=== PATIENT | female | born 1980 | race Caucasian/White ===

== ENCOUNTER 2017-08-05 21:42 | Emergency (ER) | payer BC ==
[2017-08-05 21:48] VITALS: RESP 18
[2017-08-05] MEDS ORDERED: ONDANSETRON 4 MG/2 ML VIAL IVP STA (22:39)
[2017-08-05] MEDS ORDERED: SODIUM CHLORIDE 0.9% 1,000 ML IV ONE (22:39)
[2017-08-05] MEDS ORDERED: SODIUM CHLORIDE 0.9% 500 ML IV ONE (22:39)
[2017-08-05] MEDS ORDERED: DICYCLOMINE 10 MG/ML 2 ML AMP IM STA (22:39)
--- NOTE | 2017-08-05 22:49 | ED ---
Nausea/Vomiting/Diarrhea HPI - General Chief complaint: Nausea/Vomiting/Diarrhea Stated complaint: vomiting/diarrhea Time Seen by Provider: 08/05/17 22:09 Source: patient Mode of arrival: ambulatory Limitations: no limitations - History of Present Illness Initial comments: 36-year-old female patient presents to the emergency department today for evaluation of vomiting and diarrhea. Patient states the symptoms started approximately 2 hours ago. States she's had multiple episodes of both. Patient states she is also having some generalized abdominal cramping and pain. Patient states that she is hot and cold flashes with this. She denies any known fevers. Denies any recent travel or sick contacts. She denies any ingestion of questionable foods. Patient denies any chance of . Patient denies any recent rash, shortness breath, chest pain, constipation, hematochezia, melena, hematemesis, back pain, numbness, tingling, dizziness, weakness, hematuria, dysuria, urinary urgency, urinary frequency, headache, visual changes, or any other complaints. - Related Data Home Medications Medication Instructions Recorded Confirmed Dextroamphetamine/Amphetamine 20 mg PO TID PRN 07/31/14 08/05/17 [Adderall] Previous Rx's Medication Instructions Recorded Ondansetron [Zofran ODT] 4 mg PO Q8HR PRN #10 tab 08/06/17 Allergies Allergy/AdvReac Type Severity Reaction Status Date / Time No Known Allergies Allergy Verified 08/05/17 22:30 Review of Systems ROS Statement: Those systems with pertinent positive or pertinent negative responses have been documented in the HPI. ROS Other: All systems not noted in ROS Statement are negative. Past Medical History Past Medical History: GERD/Reflux Additional Past Medical History / Comment(s): hx. migraines History of Any Multi-Drug Resistant Organisms: None Reported Past Surgical History: Adenoidectomy, Tonsillectomy Additional Past Surgical History / Comment(s): D & C Additional Past Anesthesia/Blood Transfusion Reaction / Comment(s): thinks BP was low from anes. Past Psychological History: ADD/ADHD, Anxiety Smoking Status: Current every day smoker Past Alcohol Use History: Occasional Past Drug Use History: None Reported - Past Family History Mother Family Medical History: No Reported History General Exam Limitations: no limitations General appearance: alert, in no apparent distress, other (Physical well- developed, well-nourished adult female patient in no acute distress. Vital signs upon presentation are temperature 98.5F, pulse 129, respirations 18, blood pressure 126/72, pulse ox 98% on room air.) Eye exam: Present: normal appearance, PERRL, EOMI. Absent: scleral icterus, conjunctival injection, periorbital swelling ENT exam: Present: normal exam, normal oropharynx, mucous membranes moist Respiratory exam: Present: normal lung sounds bilaterally. Absent: respiratory distress, wheezes, rales, rhonchi, stridor Cardiovascular Exam: Present: normal rhythm, tachycardia, normal heart sounds. Absent: systolic murmur, diastolic murmur, rubs, gallop, clicks GI/Abdominal exam: Present: soft, tenderness (Generalized abdominal tenderness) , normal bowel sounds. Absent: distended, guarding, rebound, rigid Neurological exam: Present: alert, oriented X3, CN II-XII intact Psychiatric exam: Present: normal affect, normal mood Skin exam: Present: warm, dry, intact, normal color. Absent: rash Course Vital Signs 08/05/17 08/05/17 08/06/17 21:46 23:00 00:14 Temperature 98.5 F 99.1 F 98.7 F Pulse Rate 129 H 87 81 Respiratory 18 18 18 Rate Blood Pressure 126/72 123/61 124/70 O2 Sat by Pulse 98 99 96 Oximetry Medical Decision Making - Medical Decision Making 36-year-old female patient presented to the emergency department today for evaluation of vomiting and diarrhea. She did also reports some generalized abdominal cramping. Physical examination was unremarkable. Labs reviewed and did show mildly elevated white blood cell count felt to be reactive from vomiting. Other labs are unremarkable. Urinalysis was negative. Patient did receive IV fluids, Zofran, and Bentyl here in the emergency Department. Patient is feeling much better upon reevaluation. We did discuss possibility of a gastroenteritis as a cause for her symptoms. We did discuss management of this at home. She is instructed to follow-up with her primary care physician for recheck in 1-2 days. Return parameters discussed in detail. She verbalizes understanding and agrees with this plan. - Lab Data Result diagrams: 08/05/17 23:00 08/05/17 23:00 Lab Results 08/05/17 08/05/17 08/05/17 Range/Units 23:00 23:00 23:00 WBC 11.8 H (3.8-10.6) k/uL RBC 4.57 (3.80-5.40) m/uL Hgb 13.7 (11.4-16.0) gm/dL Hct 41.2 (34.0-46.0) % MCV 90.1 (80.0-100.0) fL MCH 30.1 (25.0-35.0) pg MCHC 33.4 (31.0-37.0) g/dL RDW 12.9 (11.5-15.5) % Plt Count 172 (150-450) k/uL Neutrophils % 91 % Lymphocytes % 4 % Monocytes % 4 % Eosinophils % 1 % Basophils % 0 % Neutrophils # 10.7 H (1.3-7.7) k/uL Lymphocytes # 0.4 L (1.0-4.8) k/uL Monocytes # 0.5 (0-1.0) k/uL Eosinophils # 0.1 (0-0.7) k/uL Basophils # 0.0 (0-0.2) k/uL Sodium 140 (137-145) mmol/L Potassium 3.8 (3.5-5.1) mmol/L Chloride 104 (98-107) mmol/L Carbon Dioxide 23 (22-30) mmol/L Anion Gap 13 mmol/L BUN 15 (7-17) mg/dL Creatinine 0.61 (0.52-1.04) mg/dL Est GFR (CKD-EPI)AfAm >90 (>60 ml/min/1.73 sqM) Est GFR (CKD-EPI)NonAf >90 (>60 ml/min/1.73 sqM) Glucose 112 H (74-99) mg/dL Calcium 9.6 (8.4-10.2) mg/dL Total Bilirubin 0.9 (0.2-1.3) mg/dL AST 21 (14-36) U/L ALT 23 (9-52) U/L Alkaline Phosphatase 78 (38-126) U/L Total Protein 7.5 (6.3-8.2) g/dL Albumin 4.4 (3.5-5.0) g/dL Amylase 35 (30-110) U/L Lipase 35 (23-300) U/L Urine Color Urine Appearance (Clear) Urine pH (5.0-8.0) Ur Specific [place] (1.001-1.035) Urine Protein (Negative) Urine Glucose (UA) (Negative) Urine Ketones (Negative) Urine Blood (Negative) Urine Nitrite (Negative) Urine Bilirubin (Negative) Urine Urobilinogen (<2.0) mg/dL Ur Leukocyte Esterase (Negative) Urine RBC (0-5) /hpf Urine WBC (0-5) /hpf Ur Squamous Epith Cells (0-4) /hpf Urine Bacteria (None) /hpf Urine Mucus (None) /hpf Urine HCG, Qual Not Detected (Not Detectd) 08/05/17 Range/Units 23:00 WBC (3.8-10.6) k/uL RBC (3.80-5.40) m/uL Hgb (11.4-16.0) gm/dL Hct (34.0-46.0) % MCV (80.0-100.0) fL MCH (25.0-35.0) pg MCHC (31.0-37.0) g/dL RDW (11.5-15.5) % Plt Count (150-450) k/uL Neutrophils % % Lymphocytes % % Monocytes % % Eosinophils % % Basophils % % Neutrophils # (1.3-7.7) k/uL Lymphocytes # (1.0-4.8) k/uL Monocytes # (0-1.0) k/uL Eosinophils # (0-0.7) k/uL Basophils # (0-0.2) k/uL Sodium (137-145) mmol/L Potassium (3.5-5.1) mmol/L Chloride (98-107) mmol/L Carbon Dioxide (22-30) mmol/L Anion Gap mmol/L BUN (7-17) mg/dL Creatinine (0.52-1.04) mg/dL Est GFR (CKD-EPI)AfAm (>60 ml/min/1.73 sqM) Est GFR (CKD-EPI)NonAf (>60 ml/min/1.73 sqM) Glucose (74-99) mg/dL Calcium (8.4-10.2) mg/dL Total Bilirubin (0.2-1.3) mg/dL AST (14-36) U/L ALT (9-52) U/L Alkaline Phosphatase (38-126) U/L Total Protein (6.3-8.2) g/dL Albumin (3.5-5.0) g/dL Amylase (30-110) U/L Lipase (23-300) U/L Urine Color Yellow Urine Appearance Cloudy H (Clear) Urine pH 5.5 (5.0-8.0) Ur Specific [place] 1.019 (1.001-1.035) Urine Protein Trace H (Negative) Urine Glucose (UA) Negative (Negative) Urine Ketones Negative (Negative) Urine Blood Small H (Negative) Urine Nitrite Negative (Negative) Urine Bilirubin Negative (Negative) Urine Urobilinogen <2.0 (<2.0) mg/dL Ur Leukocyte Esterase Trace H (Negative) Urine RBC 4 (0-5) /hpf Urine WBC 7 H (0-5) /hpf Ur Squamous Epith Cells 14 H (0-4) /hpf Urine Bacteria Many H (None) /hpf Urine Mucus Many H (None) /hpf Urine HCG, Qual (Not Detectd) - Radiology Data Radiology results: report reviewed, image reviewed Two-view x-ray of the abdomen shows no sign of intestinal obstruction or pneumoperitoneum. Fecal pattern is normal. There are numerous phleboliths in the pelvis. There are no pathologic calcifications over the kidneys. Impression by Dr. Kaufman shows nonacute abdomen. No change. Disposition Clinical Impression: Gastroenteritis Disposition: HOME SELF-CARE Condition: Good Instructions: Gastroenteritis (ED) Additional Instructions: Clear liquid diet, advance as tolerated. Take medications as directed. Follow- up with her primary care physician for recheck in 1-2 days. Return here immediately for any new, worsening, or concerning symptoms. Prescriptions: Ondansetron [Zofran ODT] 4 mg PO Q8HR PRN #10 tab PRN Reason: Nausea Referrals: Rosalinda Acosta MD [Primary Care Provider] - 1-2 days Time of Disposition: 00:08
[2017-08-05 23:20] LABS: Basophils % (A) 0 %; Eosinophils # (A) 0.1 k/uL (0-0.7); Eosinophils % (A) 1 %; HCT 41.2 % (34.0-46.0); HGB 13.7 gm/dL (11.4-16.0); Lymphocytes # (A) 0.4 k/uL (1.0-4.8); Lymphocytes % (A) 4 %; MCH 30.1 pg (25.0-35.0); MCHC 33.4 g/dL (31.0-37.0); MCV 90.1 fL (80.0-100.0); Mean Platelet Volume 7.8; Monocytes # (A) 0.5 k/uL (0-1.0); Monocytes % (A) 4 %; Neutrophils # (A) 10.7 k/uL (1.3-7.7); Neutrophils % (A) 91 %; Platelet Count 172 k/uL (150-450); RBC 4.57 m/uL (3.80-5.40); RDW 12.9 % (11.5-15.5); WBC 11.8 k/uL (3.8-10.6)
[2017-08-05 23:28] LABS: Appearance,Urine Cloudy (Clear); Bacteria,Urine Many /hpf; Bilirubin,Urine Negative (Negative); Blood,Urine Small (Negative); Color,Urine Yellow; Glucose,Urine (UA) Negative (Negative); Ketones,Urine Negative (Negative); Leukocyte Esterase,Urine Trace (Negative); Mucus,Urine Many /hpf; Nitrite,Urine Negative (Negative); PH, Urine 5.5 (5.0-8.0); Protein,Urine Trace (Negative); RBC,Urine 4 /hpf (0-5); Specific Gravity,Urine 1.019 (1.001-1.035); Squamous Epithelial Cell,Urine 14 /hpf (0-4); Urobilinogen,Urine <2.0 mg/dL (<2.0); WBC,Urine 7 /hpf (0-5)
[2017-08-05 23:41] LABS: ALT 23 U/L (9-52); AST 21 U/L (14-36); Albumin 4.4 g/dL (3.5-5.0); Alkaline Phosphatase 78 U/L (38-126); Amylase 35 U/L (30-110); Anion Gap 13 mmol/L; Blood Urea Nitrogen 15 mg/dL (7-17); Calcium 9.6 mg/dL (8.4-10.2); Carbon Dioxide 23 mmol/L (22-30); Chloride 104 mmol/L (98-107); Glucose 112 mg/dL (74-99); Lipase 35 U/L (23-300); Potassium 3.8 mmol/L (3.5-5.1); Sodium 140 mmol/L (137-145); Total Bilirubin 0.9 mg/dL (0.2-1.3); Total Protein 7.5 g/dL (6.3-8.2)
--- NOTE | 2017-08-06 00:02 | XR ---
EXAMINATION TYPE: XR KUB DATE OF EXAM: 08/05/2017 COMPARISON: 04/30/2011 HISTORY: Abdominal pain TECHNIQUE: 2 views FINDINGS: There is no sign of intestinal obstruction or pneumoperitoneum. Fecal pattern is normal. Th ere are numerous phleboliths in the pelvis. There are no pathologic calcifications over the kidneys. IMPRESSION: Nonacute abdomen. No change.
[2017-08-06] MEDS ORDERED: ONDANSETRON 4 MG ODT STARTER PACK 2 TAB BTL PO STA (00:09)
[2017-08-06 00:15] VITALS: BP 124/70; PULSE 81; TEMP 98.7
== END 2017-08-06 00:19 | disposition home or self-care (01) ==
LOC: EC 21:42
DX: K52.9 Noninfective gastroenteritis and colitis, unspecified (principal); D72.829 Elevated white blood cell count, unspecified; F17.200 Nicotine dependence, unspecified, uncomplicated
CPT/HCPCS: 36415; 80053; 82150; 83690; 85025; 81001; 81025; 74018; 99284; 96374; 96361; 96372; J0500; J2405; 87086

== ENCOUNTER → 2018-07-10 | Outpatient (CLI) | payer BC ==
--- NOTE | 2018-07-12 13:23 | MM ---
Reason for exam: screening (asymptomatic). Baseline mammogram. History: Patient is nulliparous. Family history of breast cancer in paternal grandmother at age 45. Physical Findings: A clinical breast exam by your physician is recommended on an annual basis and results should be correlated with mammographic findings. MG 3D Screening Mammo W/Cad Bilateral CC and MLO view(s) were taken. The breast tissue is heterogeneously dense. This may lower the sensitivity of mammography. Finding: There is a 5 mm high density mass located 6-7 cm from the nipple in the 9 o'clock position of the right breast consistent with possible cyst. ASSESSMENT: Incomplete: need additional imaging evaluation, BI-RAD 0 RECOMMENDATION: Ultrasound of the left breast. [facility] will attempt to contact patient to return for ultrasound.
== END | disposition home or self-care (01) ==
LOC: RADMAMWWP 11:27
PROVIDERS: ATTEND Obstetrics & Gynecology
DX: Z12.31 Encounter for screening mammogram for malignant neoplasm of breast (principal); Z80.3 Family history of malignant neoplasm of breast
CPT/HCPCS: 77063; 77067

== ENCOUNTER → 2018-07-20 | Outpatient (CLI) | payer BC ==
--- NOTE | 2018-07-20 11:25 | USB ---
Reason for exam: additional evaluation requested from abnormal screening. History: Patient is nulliparous. Family history of breast cancer in paternal grandmother at age 45. Physical Findings: Nurse did not find any significant physical abnormalities on exam. US Breast Workup Limited LT Left limited breast ultrasound including focal area of concern, retroareolar and axilla demonstrates a 0.4 x 0.3 x 0.4cm mixed lesion at 9 o'clock. These results were verbally communicated with the patient and result sheet given to the patient on 07/20/18. ASSESSMENT: Suspicious, BI-RAD 4 RECOMMENDATION: Aspiration of the left breast. Called Dr. Camilo with mammographic findings and has scheduled an appointment for the patient for 08/26/18 at 10:[address] Brooks. Biopsy scheduled for 07/27/18 at 12:20. PRELIMINARY REPORT CALLED AND FAXED TO DR. BROOKS ON 07/20/18.
== END | disposition home or self-care (01) ==
LOC: RADUSWWP 10:14
PROVIDERS: ATTEND Obstetrics & Gynecology
DX: R92.8 Other abnormal and inconclusive findings on diagnostic imaging of breast (principal); Z80.3 Family history of malignant neoplasm of breast

== ENCOUNTER → 2018-07-27 | Day surgery (SDC) | payer BC ==
[2018-07-27 11:48] VITALS: RESP 12
[2018-07-27 12:51] VITALS: BP 99/62; PULSE 56; TEMP 97.4
--- NOTE | 2018-07-27 13:10 | USB ---
EXAMINATION TYPE: US breast aspiration single LT, MG diagnostic mammo LT wo CAD DATE OF EXAM: 07/27/2018 COMPARISON: 07/20/2018 HISTORY: Left breast mass for which biopsy was recommended. FINDINGS: Preprocedural scanning. The 4 mm mass at the 9:00 position within the left breast. This appeared to be a cyst at the time of examination however after discussion with the patient the patient wished to proceed with a cyst aspiration. Informed consent was obtained. Preprocedural timeout was performed. The skin overlying a suitable path to the patient's left breast mass at approximately 9:00 was localized with ultrasound and the overlying skin was prepped and draped. 10 cc of lidocaine buffered with bicarbonate used for local anesthesia. An 18-gauge spinal needle was used under direct ultrasound guidance to aspirate the left breast cyst. There is immediate collapse of the cyst upon aspiration. Only scant clear thin fluid was aspirated within the needle hub. Clip was deployed at the level of the mass. Post procedure mammogram performed shows the clip at the level of the breast mass. Following the procedure hemostasis achieved. The patient remained in stable condition without complication. IMPRESSION: Status post successful ultrasound-guided left breast cyst aspiration, pathology pending. Pathology Results: Benign LEFT BREAST LESION, FINE NEEDLE ASPIRATION: Benign apocrine and ductal epithelioid cells consistent with fibrocystic spectrum lesion. Cells cytologically diagnostic of carcinoma or mass lesion are not identified. Recommendation Follow up ultrasound of the left breast in 6 months. ANNALISAD
== END ==
LOC: RADUSWWP 11:31
PROVIDERS: ATTEND Surgery
DX: N63.20 Unspecified lump in the left breast, unspecified quadrant (principal)
CPT/HCPCS: 77065; 76942; 19000; A4648; J2001; 88173

== ENCOUNTER → 2019-04-22 | Outpatient (CLI) | payer BC ==
[2019-04-22 19:08] LABS: Chol/HDL Ratio 3.83
[2019-04-22 19:16] LABS: T4, Free (Free Thyroxine) 1.2 ng/dL (0.80-1.80)
== END | disposition home or self-care (01) ==
LOC: LABWHC1 11:17
PROVIDERS: ATTEND Obstetrics & Gynecology
DX: Z13.220 Encounter for screening for lipoid disorders (principal); Z13.29 Encounter for screening for other suspected endocrine disorder; N92.6 Irregular menstruation, unspecified
CPT/HCPCS: 36415; 80061; 84439; 84443; 84479; 84702

== ENCOUNTER 2021-04-20 19:40 | Emergency (ER) | payer BC, OTHER ==
[2021-04-20 19:52] VITALS: BP 132/78; PULSE 89; RESP 20; TEMP 98
[2021-04-20] MEDS ORDERED: HYDROcodone/APAP 5-325MG 1 EACH TAB PO STA (20:32)
[2021-04-20] MEDS ORDERED: ORPHENADRINE 30 MG/ML 2 ML VIAL IM STA (20:32)
--- NOTE | 2021-04-20 20:43 | ED ---
General Adult HPI - General Chief complaint: Fall Stated complaint: Fall down at least 4 stairs Time Seen by Provider: 04/20/21 19:56 Source: patient, RN notes reviewed Mode of arrival: wheelchair Limitations: no limitations - History of Present Illness Initial comments: 40-year-old female presents to the emergency Department with complaints of left low back pain post-fall down 4 steps approximately 30 minutes prior to arrival. Patient states she slipped at the top of her stairs landing on her backside and sliding down the steps. Denies head injury or neck discomfort. Pain worsens with movement and ambulation but is unchanged with palpation. Applied ice upon arrival. Did not take anything to treat symptoms prior to arrival. Denies loss of bowel or bladder control, hematuria, saddle anesthesia, or foot drop. - Related Data Previous Rx's Medication Instructions Recorded Cyclobenzaprine [Flexeril] 10 mg PO TID PRN #15 tab 04/20/21 Ibuprofen [Motrin] 600 mg PO Q8HR PRN #30 tab 04/20/21 Allergies Allergy/AdvReac Type Severity Reaction Status Date / Time No Known Allergies Allergy Verified 04/20/21 21:49 Review of Systems ROS Statement: Those systems with pertinent positive or pertinent negative responses have been documented in the HPI. ROS Other: All systems not noted in ROS Statement are negative. Past Medical History Past Medical History: No Reported History Additional Past Medical History / Comment(s): hx. migraines History of Any Multi-Drug Resistant Organisms: None Reported Past Surgical History: Adenoidectomy, Tonsillectomy Additional Past Surgical History / Comment(s): D & C Past Anesthesia/Blood Transfusion Reactions: No Reported Reaction Additional Past Anesthesia/Blood Transfusion Reaction / Comment(s): thinks BP was low from anes. Past Psychological History: No Psychological Hx Reported Smoking Status: Current every day smoker Past Alcohol Use History: None Reported Past Drug Use History: Marijuana - Past Family History Mother Family Medical History: No Reported History General Exam Limitations: no limitations General appearance: alert, other (This is a well-developed, well-nourished female who is tearful and uncomfortable upon evaluation. Initial temperature 98.0, pulse 89, respirations 20, blood pressure 132/78, pulse ox 95% on room air.) Head exam: Present: atraumatic, normocephalic, normal inspection Eye exam: Present: normal appearance, PERRL, EOMI. Absent: scleral icterus, conjunctival injection, periorbital swelling Neck exam: Present: normal inspection, full ROM. Absent: tenderness, meningismus, lymphadenopathy Respiratory exam: Present: normal lung sounds bilaterally. Absent: respiratory distress, wheezes, rales, rhonchi, stridor Cardiovascular Exam: Present: regular rate, normal rhythm, normal heart sounds. Absent: systolic murmur, diastolic murmur, rubs, gallop, clicks Left Hip exam: Present: normal inspection, full ROM. Absent: tenderness, swelling, deformity Upper Leg exam: Present: normal inspection, full ROM. Absent: tenderness, deformity Neurovascular tendon exam: Present: no vascular compromise. Absent: pulse deficit, abnormal cap refill, motor deficit, sensory deficit Back exam: Present: normal inspection, muscle spasm (Left low back pain with intermittent muscle spasms), other (No abrasion or contusion in areas where patient localizes pain). Absent: tenderness, paraspinal tenderness, vertebral tenderness Neurological exam: Present: alert, oriented X3, CN II-XII intact Psychiatric exam: Present: anxious Skin exam: Present: warm, dry, intact, normal color. Absent: rash Course Vital Signs 04/20/21 19:49 Temperature 98.0 F Pulse Rate 89 Respiratory 20 Rate Blood Pressure 132/78 O2 Sat by Pulse 95 Oximetry - Reevaluation(s) Reevaluation #1: 04/20/21 22:00 Patient sitting up at the bedside after returning from x-ray. Discomfort is modestly improved, however reports pain continues with position changes. Reassured that this would be expected after this type of injury. Provided anticipatory guidance regarding discomfort expected for tomorrow. Medical Decision Making - Medical Decision Making 40-year-old female presents to the emergency department for evaluation of left low back pain status post fall down 4 steps this evening. Upon exam, patient is anxious and tearful. Pain worsens with position changes; unchanged with palpation. No contusions, abrasions, or obvious areas of injury evident upon physical exam. Denies loss of bowel or bladder control, saddle anesthesia, or foot drop. Patient was given pain medication and muscle relaxer with some improvement. Ice was also applied the patient did not feel that this was of benefit. X-ray was unremarkable. Findings were reviewed with patient. Patient will be discharged home to follow up with her primary care provider for a recheck. Anticipatory guidance regarding pain and discomfort were reviewed at length. Patient was encouraged to maintain mobility with gentle range of motion and regular ambulation. Return parameters were discussed in detail. Patient verbalizes understanding and agrees with this plan. Patient will be discharged home with prescriptions for Motrin and Flexeril. This patient's care was discussed with my attending Dr. Dubon. - Radiology Data Radiology results: report reviewed, image reviewed X-ray of the lumbar spine was obtained. Report was reviewed in its entirety. Impression per Dr. West is negative lumbar spine exam. No fracture. Disposition Clinical Impression: Back pain, Fall Disposition: HOME SELF-CARE Condition: Stable Instructions (If sedation given, give patient instructions): Acute Low Back Pain (ED), Fall Prevention (ED) Additional Instructions: Rest. Take medications as directed. Alternate heat and ice. Maintain mobility with movement 10 minutes of every hour while you're awake. Follow-up with your primary care provider for recheck in the next few days. Return to the emergency department with any new, worsening, or concerning symptoms. Prescriptions: Cyclobenzaprine [Flexeril] 10 mg PO TID PRN #15 tab PRN Reason: Muscle Spasm Ibuprofen [Motrin] 600 mg PO Q8HR PRN #30 tab PRN Reason: Pain Is patient prescribed a controlled substance at d/c from ED?: No Referrals: None,Stated [Primary Care Provider] - 1-2 days Time of Disposition: 22:22
--- NOTE | 2021-04-20 21:37 | XR ---
EXAMINATION TYPE: XR lumbar spine 2 or 3V DATE OF EXAM: 04/20/2021 COMPARISON: NONE HISTORY: Low back pain. Fall. TECHNIQUE: 3 views FINDINGS: Lumbar vertebra have normal alignment. Posterior elements are intact. There is no compressi on fracture. Sacroiliac joints are intact. IMPRESSION: Negative lumbar spine exam. No fracture.
[2021-04-20] MEDS ORDERED: ACET/COD 300 MG/30 MG STARTER PACK 6 TAB BTL PO STA (22:14)
[2021-04-20] MEDS ORDERED: IBUPROFEN 600 MG STARTER PACK 4 TAB BTL PO STA (22:14)
[2021-04-20] MEDS ORDERED: CYCLOBENZAPRINE 10MG STARTER 3 TAB BTL PO STA (22:14)
== END 2021-04-20 22:32 | disposition home or self-care (01) ==
LOC: EC 19:40
DX: M54.50 Low back pain, unspecified (principal); F17.200 Nicotine dependence, unspecified, uncomplicated; F12.90 Cannabis use, unspecified, uncomplicated; Z90.89 Acquired absence of other organs
CPT/HCPCS: 99283; 96372; 72100; J2360

== ENCOUNTER 2021-08-06 11:01 | Emergency (ER) | payer OTHER ==
[2021-08-06 11:30] VITALS: BP 107/76; PULSE 68; RESP 18; TEMP 98.3
[2021-08-06] MEDS ORDERED: LIDOCAINE 1% INJ 10MG/ML (20 ML MDV) SQ ONE (11:42)
[2021-08-06] MEDS ORDERED: DIPH,PERTUS(ACELL)TETVAC-LF 0.5 ML VIAL IM ONE (11:42)
--- NOTE | 2021-08-06 11:46 | ED ---
General Adult HPI - General Chief complaint: Skin/Abscess/Foreign Body Stated complaint: dog bite to lip Time Seen by Provider: 08/06/21 11:33 Source: patient Mode of arrival: ambulatory - History of Present Illness Initial comments: 40-year-old female presents emergency Department with lip laceration happened about 1.5 hours ago. Patient states she was playing with her dog who is a great Tripp when he jumped up and caused her to buy her lower lip. Patient denies the dog biting her, however he is up-to-date on vaccinations. Patient is unsure when her last tetanus shot was and is okay with updating that today. Patient states her pain is currently 6/10. She denies taking any pain medication for this. Patient states she has been holding a napkin over the site since it happened and states that has mostly stopped bleeding, however when she talks or smiles the laceration reopens and begins to bleed. Patient denies any chest pain, shortness of breath, abdominal pain, nausea, vomiting, change in bowel or bladder, change in appetite, lightheadedness, dizziness, headache, change in vision. - Related Data Previous Rx's Medication Instructions Recorded Cyclobenzaprine [Flexeril] 10 mg PO TID PRN #15 tab 04/20/21 Ibuprofen [Motrin] 600 mg PO Q8HR PRN #30 tab 04/20/21 Allergies Allergy/AdvReac Type Severity Reaction Status Date / Time No Known Allergies Allergy Verified 08/06/21 11:30 Review of Systems ROS Statement: Those systems with pertinent positive or pertinent negative responses have been documented in the HPI. ROS Other: All systems not noted in ROS Statement are negative. Past Medical History Past Medical History: No Reported History Additional Past Medical History / Comment(s): hx. migraines History of Any Multi-Drug Resistant Organisms: None Reported Past Surgical History: Adenoidectomy, Tonsillectomy Additional Past Surgical History / Comment(s): D & C Past Anesthesia/Blood Transfusion Reactions: No Reported Reaction Additional Past Anesthesia/Blood Transfusion Reaction / Comment(s): thinks BP w as low from anes. Past Psychological History: No Psychological Hx Reported Smoking Status: Current every day smoker Past Alcohol Use History: None Reported Past Drug Use History: Marijuana - Past Family History Mother Family Medical History: No Reported History General Exam General appearance: alert, in no apparent distress Head exam: Present: atraumatic, normocephalic, normal inspection (Patient with 1 cm laceration to lower lip. No current bleeding, there is an avulsion/flap about 0.5cm ) Eye exam: Present: normal appearance, PERRL, EOMI. Absent: scleral icterus, conjunctival injection, periorbital swelling Pupils: Present: normal accommodation ENT exam: Present: normal exam, normal oropharynx, mucous membranes moist Neck exam: Present: normal inspection, full ROM. Absent: tenderness, meningismus, lymphadenopathy Respiratory exam: Present: normal lung sounds bilaterally. Absent: respiratory distress, wheezes, rales, rhonchi, stridor Cardiovascular Exam: Present: regular rate, normal rhythm, normal heart sounds. Absent: systolic murmur, diastolic murmur, rubs, gallop, clicks GI/Abdominal exam: Present: soft, normal bowel sounds. Absent: distended, tenderness, guarding, rebound, rigid Extremities exam: Present: normal inspection, full ROM, normal capillary refill. Absent: tenderness, pedal edema, joint swelling, calf tenderness Back exam: Present: normal inspection. Absent: full ROM, CVA tenderness (R), CVA tenderness (L), paraspinal tenderness, vertebral tenderness Neurological exam: Present: alert, oriented X3, CN II-XII intact Psychiatric exam: Present: normal affect, normal mood Skin exam: Present: warm, dry, intact (1 cm laceration to lower lip), normal color. Absent: rash Course Vital Signs 08/06/21 11:25 Temperature 98.3 F Pulse Rate 68 Respiratory 18 Rate Blood Pressure 107/76 O2 Sat by Pulse 99 Oximetry Procedures - Laceration Laceration #1 Consent Obtained: verbal consent Indication: laceration Site: lip Description: avulsion Depth: simple, single layer Anesthetic Used: lidocaine 1% Anesthesia Technique: local infiltration Pre-repair: irrigated extensively Type of Sutures: nylon Size of Sutures: 5-0 Technique: simple, interrupted Patient Tolerated Procedure: well, no complications Medical Decision Making - Medical Decision Making 40-year-old female presents emergency Department with lip laceration after she bit her lip on her dog jumped up on her. ONE 5-0 sutures placed. Hemostasis obtained. Tetanus shot was administered. Patient instructed to return to the emergency department in 3-5 days to have suture removed. Strict return prec autions were discussed. Patient sent in stable condition. Case discussed in detail my attending, Dr. Stone. Disposition Clinical Impression: Laceration of lip Disposition: HOME SELF-CARE Condition: Stable Instructions (If sedation given, give patient instructions): Care For Your Stitches (ED), Laceration (ED) Additional Instructions: Please return to have suture removed on 08/11/21. Follow-up with the primary care physician in next 24-48 hours. Return to the emergency department with any new, worsening or concerning symptoms. Is patient prescribed a controlled substance at d/c from ED?: No Referrals: None,Stated [Primary Care Provider] - 1-2 days Erwin Lerner [STAFF PHYSICIAN] - 1-2 days Time of Disposition: 12:13
== END 2021-08-06 12:37 | disposition home or self-care (01) ==
LOC: EC 11:01
DX: S01.511A Laceration without foreign body of lip, initial encounter (principal); Z23 Encounter for immunization; F17.200 Nicotine dependence, unspecified, uncomplicated; F12.90 Cannabis use, unspecified, uncomplicated; W54.0XXA Bitten by dog, initial encounter
CPT/HCPCS: 99282; 90471; 12011; 90715; J2001